=== PATIENT | male | born 1940 | race Caucasian/White ===

== ENCOUNTER 2021-01-02 15:53 | Emergency (ER) | payer MEDICARE, OTHER ==
[~2021-01-02 15:53] MED LIST: Iopamidol-370 76% 500 ML 1 ML ONE
[2021-01-02] MEDS ORDERED: niCARdipine 20MG In NaCl 20 MG/200 ML BAG ONE (16:00)
[2021-01-02] MEDS ORDERED: Propofol 1,000 MG/100 ML VIAL IV ONE (16:00)
[2021-01-02] MEDS ORDERED: Midazolam HCl 5 mg/ml Vial ONE (16:01)
[2021-01-02 16:31] LABS: #Eosinphils 0.1 thou/uL (0.0-0.7); #Lymphocytes 1.4 thou/uL (1.20-3.40); #Monocytes 1.2 thou/uL (0.11-0.59); #Neutrophils 10.4 thou/uL (1.40-6.50); %Eosinophils 0.8 % (0.0-10.0); %Lymphocytes 10.4 % (21.0-51.0); %Neutrophils 79.9 % (42.0-75.0); Hemoglobin 11.3 g/dL (14.0-18.0); Mean Corpuscular HGB CONC 35.7 g/dL (32.0-36.0); Mean Corpuscular Hemoglobin 35.3 pg (27.0-31.0); Mean Corpuscular Volume 98.9 fL (78.0-98.0); Mean Platelet Volume 6.9 fL (7.4-10.4); Platelet Count 133 thou/uL (130-400); RBC Distribution Width 11.7 % (11.5-14.5); Red Blood Cell (RBC) Count 3.19 mill/uL (4.70-6.10)
[2021-01-02 16:39] LABS: Actual Bicarbonate (HCO3a) 17.6 mEq/L (22-28); Analyzer IN Cardio ER; Base Excess (BEa) -6.4 mEq/L (-2.0 to +3.0); CO2 Tension 30.3 mmHg (35.0-45.0); Calcium, Ionized (arterial) 1.11 mmol/L (1.12-1.30); Carboxyhemoglobin (COHb) 0.1 gm% (0.0-3.0); Hemoglobin (Hb) 12.7 g/dL (14.0-18.0); O2 Tension (PaO2), arterial 165.4 mmHg (> 60.0); Potassium - ABG Lab 4.16 mmol/L (3.70-5.30); pH, Arterial 7.38 (7.35-7.45)
[2021-01-02 16:40] LABS: Puncture Site RRA
[2021-01-02 16:41] LABS: ALV-art Gradient 81.925 mmHg (0-20)
[2021-01-02] MEDS ORDERED: Fentanyl CADD 100 ML IV SCH (16:45)
[2021-01-02 16:47] LABS: ALT (SGPT) 32 U/L (8-55); AST (SGOT) 58 U/L (5-34); Albumin 3.5 g/dL (3.4-4.8); Alkaline Phosphatase 77 U/L (40-110); Anion Gap 18 mmol/L (10-20); BUN (Urea Nitrogen) 21 mg/dL (8.4-25.7); Bilirubin, Total 1.3 mg/dL (0.2-1.2); Calc. Creatinine Clearance 0 mL/min (70-130); Calcium 8.4 mg/dL (7.8-10.44); Carbon Dioxide 22 mmol/L (23-31); Chloride 88 mmol/L (98-107); Globulin 2.4 g/dL (2.4-3.5); Glucose 132 mg/dL (83-110); Potassium 4.5 mmol/L (3.5-5.1); Protein, Total 5.9 g/dL (5.8-8.1); Sodium 124 mmol/L (136-145)
[2021-01-02 16:58] LABS: PTT 33.5 sec (22.9-36.1)
[2021-01-02 16:59] LABS: INR-International Normal Ratio 1.1; Prothrombin Time 14.3 sec (12.0-14.7)
[2021-01-02 18:13] LABS: SARS-CoV-2 NAA Rapid Test Not Detected (NotDetected)
== END 2021-01-02 22:03 | disposition expired ==
LOC: EDBD 15:53 → ERS 15:53
DX: S06.5X9A Traumatic subdural hemorrhage with loss of consciousness of unspecified duration, initial encounter (principal); I46.9 Cardiac arrest, cause unspecified; S01.01XA Laceration without foreign body of scalp, initial encounter; R14.0 Abdominal distension (gaseous); I10 Essential (primary) hypertension; Z79.899 Other long term (current) drug therapy; W18.30XA Fall on same level, unspecified, initial encounter; Z20.822 Contact with and (suspected) exposure to COVID-19
CPT/HCPCS: 0240U; 31500; 36600; 51702; 70450; 70496; 70498; 72125; 80053; 82550; 82805; 84484; 85025; 85610; 85730; 93005; 96365; 96366; 96375; 99285; 36415; 94002; J2250; J2704; Q9967